=== PATIENT | female | born 1960 ===

== ENCOUNTER 2017-07-01 23:28 | Emergency (ER) | payer MEDICAID, OTHER ==
[2017-07-01 23:29] VITALS: BMI 31.4
[2017-07-02] MEDS ORDERED: Sodium Chloride 0.9% 1,000 ML IV STA (00:24)
[2017-07-02 00:47] LABS: BASO % 0.2 % (0.0-2.0); EOS # 0.1 K/uL (0.0-0.7); EOS % 0.5 % (0.0-4.0); HEMATOCRIT 40.7 % (34.0-47.0); LYMPH % 8.2 % (20.0-40.0); MEAN CELL VOLUME 95.2 fl (81.0-99.0); MEAN CORPUSCULAR HEMOGLOBIN 31.5 pg (27.0-31.0); MEAN CORPUSCULAR HGB CONC 33.1 g/dL (33.0-37.0); MEAN PLATELET VOLUME 9.6 fl (7.2-11.7); MONO # 0.3 K/uL (0.0-0.8); MONO % 2.1 % (0.0-10.0); NEUT # 11.3 K/uL (1.8-7.0); PLATELET COUNT 206 K/uL (130-400); RED CELL DISTRIBUTION WIDTH 12.6 % (11.5-14.5); WHITE BLOOD COUNT 12.7 K/uL (4.8-10.8)
[2017-07-02 00:56] LABS: ALB/GLOB RATIO 1.3 (1.0-2.1); ALKALINE PHOSPHATASE 87 U/L (38-126); ALT/SGPT 26 U/L (9-52); AST/SGOT 25 U/L (14-36); BILIRUBIN,TOTAL 0.6 mg/dl (0.2-1.3); BLOOD UREA NITROGEN 26 mg/dl (7-17); CARBON DIOXIDE 24 mmol/L (22-30); CHLORIDE 106 mmol/L (98-107); GFR AFRICAN-AMERICAN > 60; GLUCOSE,RANDOM 103 mg/dL (65-105); LIPASE 71 U/L (23-300); POTASSIUM 3.8 MMOL/L (3.6-5.0); SODIUM 142 mmol/l (132-148); TOTAL PROTEIN 7.6 G/DL (6.3-8.2)
--- NOTE | 2017-07-02 01:13 | ED PDOC ---
HPI: Abdomen Time Seen by Provider: 07/01/17 23:35 Chief Complaint (Nursing): Abdominal Pain Chief Complaint (Provider): Abdominal Pain History Per: Patient History/Exam Limitations: no limitations Onset/Duration Of Symptoms: Days (1) Outside of [place] travel?: No Severity: Mild Location Of Pain/Discomfort: Epigastric (Mid) Quality Of Discomfort: "Pain" Associated Symptoms: Vomiting, Diarrhea. denies: Fever, Chills Additional History Per: Patient Additional Complaint(s): 57 y/o female with no medical problems or allergies, c/o mid-epigastric abdominal pain x1 day. Associated with vomiting and diarrhea. Denies fever or chills. Patient has not eaten anything out of the ordinary. No recent travels. Past Medical History Reviewed: Historical Data, Nursing Documentation, Vital Signs Vital Signs: Last Vital Signs Temp 98.4 F 07/02/17 03:30 Pulse 54 L 07/02/17 03:30 Resp 14 07/02/17 03:30 BP 114/69 07/02/17 03:30 Pulse Ox 98 07/02/17 03:30 - Medical History PMH: Arthritis, Asthma (never been hospitalized), Depression (stopped medicine 3 weeks ago, pt cannot recall name), Gastritis, Hypercholesterolemia Denies: Chronic Kidney Disease - Surgical History Surgical History: Endoscopy (2008) - Family History Family History: States: Unknown Family Hx - Social History Current smoker - smoking cessation education provided: No Alcohol: None Drugs: Denies - Home Medications Home Medications: Ambulatory Orders Medication Instructions Recorded Folic Acid 1 mg PO DAILY 02/01/14 Methotrexate 2.5 mg PO QWK 02/01/14 Omeprazole 40 mg PO DAILY 02/01/14 Ondansetron [Zofran] 4 mg PO Q6H PRN #5 tab 07/02/17 - Allergies Allergies/Adverse Reactions: Allergies Allergy/AdvReac Type Severity Reaction Status Date / Time No Known Allergies Allergy Verified 02/01/14 10:50 Review of Systems ROS Statement: Except As Marked, All Systems Reviewed And Found Negative Constitutional: Negative for: Fever, Chills Gastrointestinal: Positive for: Vomiting, Abdominal Pain (Mid-epigastric), Diarrhea Physical Exam - Reviewed Nursing Documentation Reviewed: Yes Vital Signs Reviewed: Yes - Physical Exam Appears: Positive for: Well, Non-toxic, No Acute Distress Head Exam: Positive for: ATRAUMATIC, NORMAL INSPECTION, NORMOCEPHALIC Skin: Positive for: Normal Color, Warm, DRY Cardiovascular/Chest: Positive for: Regular Rate, Rhythm. Negative for: Murmur Respiratory: Positive for: Normal Breath Sounds. Negative for: Rales, Rhonchi, Wheezing Gastrointestinal/Abdominal: Positive for: Soft, Tenderness (Slight mid- epigastric tenderness). Negative for: Guarding, Rebound Extremity: Positive for: Normal ROM Neurologic/Psych: Positive for: Alert, Oriented - Laboratory Results Result Diagrams: 07/02/17 00:43 07/02/17 00:43 - ECG O2 Sat by Pulse Oximetry: 99 (RA) Pulse Ox Interpretation: Normal Medical Decision Making Medical Decision Making: Impression: * Mid epigastric abdominal pain x1 day. Plans: * Pepcid * Zofran * UA * Blood labs * IV fluids Reevaluation: pt feels better. abdomen reexamined, benign. pt tolerated po. Scribe Attestation: Documented by Priscilla booker, acting as a scribe for Seth Pike. Provider Scribe Attestation: All medical record entries made by the Scribe were at my direction and personally dictated by me. I have reviewed the chart and agree that the record accurately reflects my personal performance of the history, physical exam, medical decision making, and the department course for this patient. I have also personally directed, reviewed, and agree with the discharge instructions and disposition. Disposition - Clinical Impression Clinical Impression: Abdominal pain, Gastroenteritis - Patient ED Disposition Is Patient to be Admitted: No Counseled Patient/Family Regarding: Diagnosis, Need For Followup - Disposition Referrals: [facility] [Outside] Hernan Keyes MD [Primary Care Provider] - Disposition: Routine/Home Disposition Time: 23:55 Condition: IMPROVED Additional Instructions: follow up with your primary doctor in 1-2 days return to the ED with any worsening or concerning symptoms Prescriptions: Ondansetron [Zofran] 4 mg PO Q6H PRN #5 tab PRN Reason: Nausea/Vomiting Instructions: Gastroenteritis (ED), Abdominal Pain (ED) Forms: [facility] (Japanese) Print Language: [email or web address]
[2017-07-02 01:26] LABS: RBC URINE 1 /hpf (0-3); URINE BILIRUBIN NEGATIVE (NEGATIVE); URINE BLOOD NEGATIVE (NEGATIVE); URINE COLOR YELLOW (YELLOW); URINE GLUCOSE (UA) NEG (Normal); URINE KETONE 20 mg/dL (NEGATIVE); URINE LEUKOCYTE ESTERASE NEG Leu/uL (Negative); URINE PROTEIN NEGATIVE (NEGATIVE); URINE UROBILINOGEN 0.2-1.0 mg/dL (0.2-1.0); WBC URINE 2 /hpf (0-5)
[2017-07-02 03:20] LABS: NEUTROPHIL 86 % (42-75); REACTIVE LYMPHOCYTES 1 % (0-0); TOTAL CELLS COUNTED 100
[2017-07-02 03:22] LABS: STOMATOCYTES SLIGHT
[2017-07-02 03:56] VITALS: BP 114/69; PULSE 54; RESP 14; TEMP 98.4
[2017-07-02 06:04] VITALS: O2SAT 99
== END 2017-07-02 03:35 | disposition home or self-care (01) ==
LOC: H.ER 23:28
DX: K52.9 Noninfective gastroenteritis and colitis, unspecified (principal)
CPT/HCPCS: 80053; 81003; 83690; 85025; 87086; 96361; 96374; 96375; 99284; J2405; J7040